=== PATIENT | female | born 1985 | race African-American/Black ===

== ENCOUNTER 2016-12-31 12:18 | Emergency (ER) | payer BC, MEDICAID ==
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
[2016-12-31] MEDS ORDERED: DIPH/PERTUSS(ACELL)/TETANUS VAC/PF 0.5 ML SYR (>=10YO) IM ONE (15:08)
[2016-12-31 15:47] VITALS: BP 147/97
== END 2016-12-31 15:45 | disposition home or self-care (01) ==
LOC: ER 12:18
DX: S01.111A Laceration without foreign body of right eyelid and periocular area, initial encounter (principal); S09.22XA Traumatic rupture of left ear drum, initial encounter; S63.609A Unspecified sprain of unspecified thumb, initial encounter; Y04.2XXA Assault by strike against or bumped into by another person, initial encounter; Y93.89 Activity, other specified; Y92.818 Other transport vehicle as the place of occurrence of the external cause; R51 Headache; R42 Dizziness and giddiness; M54.2 Cervicalgia; M54.6 Pain in thoracic spine; M79.645 Pain in left finger(s); Z23 Encounter for immunization
CPT/HCPCS: 70450; 71020; 72125; 90471; 90715; 99284